=== PATIENT | male | born 1985 | race Asian ===

== ENCOUNTER 2025-04-24 14:48 | Emergency (ER) | payer OTHER, BC, SELFPAY ==
--- NOTE | ~2025-04-24 | XR_ITS ---
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 TECHNIQUE: AP view(s) of the abdomen. FINDINGS: The bowel gas pattern is normal. There is no evidence for obstruction. Radiopaque foreign body in the mid abdomen, likely in the distal stomach. No free intraperitoneal air is identified on this supine radiograph. The visualized soft tissue shadows are unremarkable. No gross bony abnormalities are seen. Visualized portions of lung bases are clear. IMPRESSION: Radiopaque foreign body in the mid abdomen, likely in the distal stomach. Reviewed, dictated and finalized at location A.
--- NOTE | 2025-04-24 15:00 | ED.GENADULT ---
HPI - General Adult General Chief complaint: Skin/Abscess/Foreign Body Stated complaint: SWALLOWED FB Time Seen by Provider: 04/24/25 15:00 Source: patient, RN notes reviewed and old records reviewed Mode of arrival: ambulatory Limitations: no limitations History of Present Illness HPI narrative: 39-year-old male presents to the [facility] with concerns of either swallowing or inhaling a screwdriver from a dental tool. Patient reports that they were unscrewing his dental implants when the screwdriver fell off and not sure if he swallowed it or if he inhaled it. Was sent from the dental office to the urgent care. Patient in no respiratory distress, no trouble breathing, oxygen is normal Patient denies any pain currently Onset (ago): minute(s) (30 prior to arrival) Related Data Home Medications ?Medication ?Instructions ?Recorded ?Confirmed ?Last Taken ?Type No Home Medications 04/24/25 04/24/25 Unknown History Allergies Allergy/AdvReac Type Severity Reaction Status Date / Time No Known Allergies Allergy Verified 04/24/25 18:10 Review of Systems Review of Systems: All systems reviewed & are unremarkable except as noted in HPI and below Constitutional: Constitutional: Reports no additional constitutional complaints ENT: Reports system reviewed and no additional complaints, except as documented Cardiovascular: Cardiovascular: Reports no additional cardiovascular complaints, Denies chest pain and Denies dyspnea Respiratory: Respiratory: Reports no additional respiratory complaints, Denies chest congestion, Denies cough and Denies dyspnea Gastrointestinal: Gastrointestinal: Reports as per HPI Musculoskeletal: Musculoskeletal: Reports no additional musculoskeletal complaints Integumentary/Breasts: Skin/Breast: Reports system reviewed and no additional complaints, except as docu PMFSH Past Medical History Medical History Spasm of muscle of lower back BMI 29.0-29.9,adult Social History Social History Smoking status: Never smoker Alcohol intake: current Comments At the time of my signature, I reviewed and agree with the nursing past medical, surgical, social, and family history. There is no relevant family history pertinent to the patient complaint. Exam Const: General: cooperative, healthy appearing, comfortable, no acute distress, well developed, alert and well nourished Nutritional Appearance: well nourished Orientation/consciousness: patient oriented x3 Limitations: no limitations HENMT: Head: normal to inspection Ears: hearing grossly normal bilaterally Mouth: Yes Normal oral and palatal mucosa present, Yes lip normal, Yes tongue normal and Yes moist mucous membranes Eyes: General: appearance normal, both eyes and all related structures Alignment and Position: alignment normal Neck: Neck: normal visual inspection, full ROM, no lymphadenopathy and no meningeal signs Chest: Chest palpation & inspection: normal inspection of the chest Resp: Effort & Inspection: normal respiratory effort and able to speak in complete sentences Cardio: Rate: regular rate GI: GI Palp: No abdominal tenderness Skin: General skin exam: normal color and no rashes or lesions noted Neuro: General: patient oriented x3, gait normal, moves all extremities and no meningeal signs Cognition (Neuro): normal cognition Speech: normal speech Gait exam (Neuro): Normal gait present Extrem: General: normal to inspection, full ROM, capillary refill normal and normal gait Psych: Appearance: grossly normal and well kempt Mental Status: mental status grossly normal Speech and movement: Normal speech and movement present and Clear speech present Affect: normal affect Attitude: cooperative Course Course Emergency Course: [address] Rangel 1530 call to [employer]- left message. 1535 Dr Benitez discussed x-ray, radiopaque foreign body in mid abdomen likely distal stomach. Recommended transfer to the ER, if still in stomach will do an upper endoscopy and retrieve foreign body, if in small intestine will not be able to retrieve. Level of Care: Express Care Visit Vital Signs Vital signs: Vital Signs Temperature 98 F 04/24/25 15:03 Pulse Rate 83 04/24/25 15:03 Respiratory Rate 16 04/24/25 15:03 Blood Pressure 130/87 04/24/25 15:03 Pulse Oximetry 100 04/24/25 15:03 Temperature 98 F 04/24/25 15:03 Pulse Rate 83 04/24/25 15:03 Respiratory Rate 16 04/24/25 15:03 Blood Pressure 130/87 04/24/25 15:03 Pulse Oximetry 100 04/24/25 15:03 Reviewed Transfer Transfered to: [place] Transportation: Other (POV) Transfer rationale: Patient with foreign body, screwdriver from a dental instrument in the stomach Accepting physician: Spoke with Dr Jim David Medical Decision Making MDM Narrative Medical decision making narrative: Patient sitting comfortably in exam room. Nontoxic, vitals stable. Patient in no acute distress Patient presents after swallowing a part of a dental screwdriver approximately 30 minutes prior to arrival in the [facility]. After discussing with Dr. Newman as well as Dr. Benitez. GI provider would like him sent to the ER for repeat KUB and is still in stomach will do endoscopy to retrieve objects, if it is in the intestine he will be unable to retrieve it and will follow him for it to pass. Discussed this with patient who was in agreement. Will go to [place] ER Transfer instructions reviewed with patient to go directly to the ER. Stressed the importance of not eating or drinking anything until cleared by ER provider/GI provider All questions have been answered, and the patient deny any further questions Some parts of this dictation were generated by voice recognition software and may contain typographical and/or grammatical inaccuracies. Differential Diagnosis Differential Diagnosis: Foreign body lung, foreign body stomach, foreign body intestines, Medical Records Medical records reviewed: Yes I reviewed the external patient's medical records. Vital Signs Vital Signs: Vital Signs Temperature 98 F 04/24/25 15:03 Pulse Rate 83 04/24/25 15:03 Respiratory Rate 16 04/24/25 15:03 Blood Pressure 130/87 04/24/25 15:03 Pulse Oximetry 100 04/24/25 15:03 Temperature 98 F 04/24/25 15:03 Pulse Rate 83 04/24/25 15:03 Respiratory Rate 16 04/24/25 15:03 Blood Pressure 130/87 04/24/25 15:03 Pulse Oximetry 100 04/24/25 15:03 Reviewed Lab Data Lab results reviewed: Yes I reviewed the patient's lab results. 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 TECHNIQUE: AP view(s) of the abdomen. FINDINGS: The bowel gas pattern is normal. There is no evidence for obstruction. Radiopaque foreign body in the mid abdomen, likely in the distal stomach. No free intraperitoneal air is identified on this supine radiograph. The visualized soft tissue shadows are unremarkable. No gross bony abnormalities are seen. Visualized portions of lung bases are clear. IMPRESSION: Radiopaque foreign body in the mid abdomen, likely in the distal stomach. Critical Care Time Critical Care Time Critical Care Time: No Discharge Plan Discharge Clinical Impression: FB mouth/esophag/stomach Qualifiers: Encounter type: initial encounter Qualified Code(s): T18.0XXA - Foreign body in mouth, initial encounter Patient Disposition: Acute Care Hospital Condition: Stable Patient Language: French Prescriptions: No Action No Home Medications Follow-up/Referrals: Lukasz Chacon MD [Primary Care Provider, [facility]]
[2025-04-24 15:03] VITALS: BP 130/87; PULSE 83; RESP 16; TEMP 36.6; O2SAT 100
--- NOTE | 2025-04-24 15:37 | PC.NURSE ---
1535- PROFESSOR OF BIOLOGICAL SCIENCES talking to ALEJANDRO Delgado.
== END 2025-04-24 15:48 | disposition short-term general hospital (02) ==
PROVIDERS: Emergency Provider Nurse Practitioner; PCP Family Medicine
DX: T18.198A Other foreign object in esophagus causing other injury, initial encounter (principal); T18.2XXA Foreign body in stomach, initial encounter; W44.8XXA Other foreign body entering into or through a natural orifice, initial encounter
CPT/HCPCS: 74018; 99213; G0463; J3010

== ENCOUNTER 2025-04-24 16:00 | Day surgery (SDC) | payer BC, SELFPAY ==
[2025-04-24] VITALS (9 sets, daily range): BP systolic 130–163; BP diastolic 70–105; PULSE 75–99; RESP 16–18; TEMP 36.6–36.7; O2SAT 96–100
--- NOTE | ~2025-04-24 | XR_ITS ---
EXAMINATION: XR abdomen/kub 1V DATE: 04/24/2025 16:22 INDICATION: Swallowed screwdriver during dental procedure TECHNIQUE: A supine view of the abdomen on 2 radiographs was obtained. COMPARISON: 04/24/2025 FINDINGS: Moderate amount of stool and air in nondilated large bowel. Small amount of air in nondilated small bowel. There is a 7 mm calcification in the left hemipelvis. Prior surgical change projects over the right lower abdomen. Partial lumbarization of the S1 segment. There is a 2.5 cm metallic foreign body projecting over the right transverse process of L1. IMPRESSION: 1. There is a 2.5 cm metallic foreign body projecting over the right transverse process of L1. 2. Nonobstructive bowel gas pattern. Reviewed, dictated and finalized at location A.
[2025-04-24 17:27] LABS: Hematocrit 45.9 % (42.0-52.0); Hemoglobin 15.7 g/dL (14.0-18.0); Immature Granulocyte Percent A 0.2 % (0-0.5); Lymphocytes Absolute Auto 2.19 K/mm3 (0.9-3.2); Mean Corpuscular HGB Conc 34.2 g/dl (32-36); Mean Corpuscular Hemoglobin 29.1 pg (26-34); Mean Corpuscular Volume 85.2 fl (80-100); Nucleated Red Blood Cells Absolute Auto 0.000 K/mm3 (0.0-0.012); Nucleated Red Blood Cells Perc 0.0 % (0.0-0.2); Platelet Count Result 297 k/mm3 (150-375); Red Blood Count 5.39 M/mm3 (4.6-6.20); White Blood Count 5.7 K/mm3 (4.5-10.0)
--- NOTE | 2025-04-24 17:29 | ED_ITS ---
HPI - Recheck/Abnormal Lab/Rx General Chief Complaint: Recheck/Abnormal Lab/Rx <Rosa Newell PA-C - Last Filed: 04/24/25 19:11> Stated Complaint: FB GI <Rosa Newell PA-C - Last Filed: 04/24/25 19:11> Time Seen by Provider: 04/24/25 16:28 <Rosa Newell PA-C - Last Filed: 04/24/25 19:11> Source: patient <Rosa Newell PA-C - Last Filed: 04/24/25 19:11> Mode of arrival: ambulatory <MARYAM Garcia Last Filed: 04/24/25 19:11> Limitations: no limitations <Rosa Newell PA-C - Last Filed: 04/24/25 19:11> History of Present Illness HPI narrative: This is a 39-year-old male that presents to the emergency department for a foreign body in stomach. He was having a dental procedure done and they dropped a small screwdriver down his throat. Was seen at urgent care, sent to the ER for further evaluation. <Rosa Newell PA-C - Last Filed: 04/24/25 19:11> Related Data Home Medications: Home Medications ?Medication ?Instructions ?Recorded ?Confirmed ?Last Taken ?Type No Home Medications 04/24/25 04/24/25 U nknown History <Rosa Newell PA-C - Last Filed: 04/24/25 19:11> Allergies/Adverse Reactions: Allergies Allergy/AdvReac Type Severity Reaction Status Date / Time No Known Allergies Allergy Verified 04/24/25 18:10 <MARYAM Garcia Last Filed: 04/24/25 19:11> Review of Systems 2 Review of Systems: All systems reviewed & are unremarkable except as noted in HPI and below <Rosa Newell PA-C - Last Filed: 04/24/25 19:11> PMFSH Past Medical History Medical History: Medical History Spasm of muscle of lower back BMI 29.0-29.9,adult <Rosa Newell PA-C - Last Filed: 04/24/25 19:11> Social History Social History: Social History Smoking status: Never smoker Alcohol intake: current <Rosa Newell PA-C - Last Filed: 04/24/25 19:11> Exam 2 Narrative: GENERAL: Well-appearing, well-nourished, and in no acute distress. HEAD: Normocephalic, atraumatic. EYES: EOMI. ENT: Nares clear, no rhinorrhea or epistaxis. Mucous membranes moist. Oropharynx without tonsillar hypertrophy exudate or other lesions. CHEST: No respiratory distress. HEART: Regular rate EXTREMITIES: Normal range of motion. No edema. SKIN: Warm, dry, no rash. NEURO: No focal deficits. Alert and oriented x3. PSYCH: Normal mood and affect <Rosa Newell PA-C - Last Filed: 04/24/25 19:11> Course DECISION SCIENCE ANALYST/PA Physician Supervision This visit was performed by both a physician and an APC; I performed all aspects of the medical decision making component of this evaluation as documented. <Renea Fernandez MD - Last Filed: 04/24/25 19:18> Consultations Consultation #1: Spoke with Dr. Delgado. Patient will be taken to the GI lab for further management <Rosa Newell PA-C - Last Filed: 04/24/25 19:11> Date: 04/24/25 <Rosa Newell PA-C - Last Filed: 04/24/25 19:11> Vital Signs Vital signs: Vital Signs Temperature 97.9 F 04/24/25 16:03 Pulse Rate 84 04/24/25 16:03 Respiratory Rate 16 04/24/25 16:03 Blood Pressure 148/105 H 04/24/25 16:03 Pulse Oximetry 100 04/24/25 16:03 Oxygen Delivery Room Air 04/24/25 16:03 Temperature 98.1 F 04/24/25 18:48 Pulse Rate 90 04/24/25 18:58 Respiratory Rate 18 04/24/25 18:58 Blood Pressure 152/94 H 04/24/25 18:58 Pulse Oximetry 96 04/24/25 18:58 Oxygen Delivery Room Air 04/24/25 18:58 <Rosa Newell PA-C - Last Filed: 04/24/25 19:11> Vital Signs Temperature 97.9 F 04/24/25 16:03 Pulse Rate 84 04/24/25 16:03 Respiratory Rate 16 04/24/25 16:03 Blood Pressure 148/105 H 04/24/25 16:03 Pulse Oximetry 100 04/24/25 16:03 Oxygen Delivery Room Air 04/24/25 16:03 Temperature 98.1 F 04/24/25 18:48 Pulse Rate 90 04/24/25 18:58 Respiratory Rate 18 04/24/25 18:58 Blood Pressure 152/94 H 04/24/25 18:58 Pulse Oximetry 96 04/24/25 18:58 Oxygen Delivery Room Air 04/24/25 18:58 <Renea Fernandez MD - Last Filed: 04/24/25 19:18> MDM - Recheck/Abnormal Lab/Rx Lab Data Result diagrams: 04/24/25 17:15 04/24/25 17:15 <Rosa Newell PA-C - Last Filed: 04/24/25 19:11> Labs: Lab Results 04/24/25 Range/Units 17:15 WBC 5.7 (4.5-10.0) K/mm3 RBC 5.39 (4.6-6.20) M/mm3 Hgb 15.7 (14.0-18.0) g/dL Hct 45.9 (42.0-52.0) % MCV 85.2 (80-100) fl MCH 29.1 (26-34) pg MCHC 34.2 (32-36) g/dl RDW 12.8 (11.5-14.5) % Plt Count 297 (150-375) k/mm3 MPV 7.9 (7.4-10.4) fl Immature Gran % (Auto) 0.2 (0-0.5) % Neut % (Auto) 55.5 (45.5-73.1) % Lymph % (Auto) 38.3 (18.3-44.2) % Jay % (Auto) 4.4 (2.6-8.5) % Eos % (Auto) 0.9 (0-4.4) % Baso % (Auto) 0.7 (0.2-1.2) % Lymph # (Auto) 2.19 (0.9-3.2) K/mm3 Jay # (Auto) 0.3 (0.1-0.6) K/mm3 Eos # (Auto) 0.1 (0-0.3) K/mm3 Baso # (Auto) 0.0 (0.0-0.1) K/mm3 Abs Immat Gran (auto) 0.01 (0.00-0.031) K/mm3 Absolute Neuts (auto) 3.2 (1.3-6.7) K/mm3 Absolute Nucleated RBC 0.000 (0.0-0.012) K/mm3 Nucleated RBC % 0.0 (0.0-0.2) % Sodium 138 (137-145) mmol/L Potassium 4.1 (3.4-5.0) mmol/L Chloride 102 (98-107) mmol/L Carbon Dioxide 24 (22-30) mmol/L Anion Gap 12 (4-12) mmol/L BUN 21 H (9-20) mg/dL Creatinine 0.99 (0.7-1.3) mg/dL Estim Creat Clear Calc 81 ml/min Estimated GFR > 60 (59 - ) Glucose 107 (65-110) mg/dL Calcium 9.5 (8.4-10.2) mg/dL Total Bilirubin 0.4 (0.2-1.3) mg/dL AST 41 (17-59) U/L ALT 42 (6-50) U/L Alkaline Phosphatase 55 (38-126) U/L Total Protein 9.3 H (6.3-8.2) g/dL Albumin 4.9 (3.5-5.1) g/dL <Rosa Newell PA-C - Last Filed: 04/24/25 19:11> Lab Results 04/24/25 Range/Units 17:15 WBC 5.7 (4.5-10.0) K/mm3 RBC 5.39 (4.6-6.20) M/mm3 Hgb 15.7 (14.0-18.0) g/dL Hct 45.9 (42.0-52.0) % MCV 85.2 (80-100) fl MCH 29.1 (26-34) pg MCHC 34.2 (32-36) g/dl RDW 12.8 (11.5-14.5) % Plt Count 297 (150-375) k/mm3 MPV 7.9 (7.4-10.4) fl Immature Gran % (Auto) 0.2 (0-0.5) % Neut % (Auto) 55.5 (45.5-73.1) % Lymph % (Auto) 38.3 (18.3-44.2) % Jay % (Auto) 4.4 (2.6-8.5) % Eos % (Auto) 0.9 (0-4.4) % Baso % (Auto) 0.7 (0.2-1.2) % Lymph # (Auto) 2.19 (0.9-3.2) K/mm3 Jay # (Auto) 0.3 (0.1-0.6) K/mm3 Eos # (Auto) 0.1 (0-0.3) K/mm3 Baso # (Auto) 0.0 (0.0-0.1) K/mm3 Abs Immat Gran (auto) 0.01 (0.00-0.031) K/mm3 Absolute Neuts (auto) 3.2 (1.3-6.7) K/mm3 Absolute Nucleated RBC 0.000 (0.0-0.012) K/mm3 Nucleated RBC % 0.0 (0.0-0.2) % Sodium 138 (137-145) mmol/L Potassium 4.1 (3.4-5.0) mmol/L Chloride 102 (98-107) mmol/L Carbon Dioxide 24 (22-30) mmol/L Anion Gap 12 (4-12) mmol/L BUN 21 H (9-20) mg/dL Creatinine 0.99 (0.7-1.3) mg/dL Estim Creat Clear Calc 81 ml/min Estimated GFR > 60 (59 - ) Glucose 107 (65-110) mg/dL Calcium 9.5 (8.4-10.2) mg/dL Total Bilirubin 0.4 (0.2-1.3) mg/dL AST 41 (17-59) U/L ALT 42 (6-50) U/L Alkaline Phosphatase 55 (38-126) U/L Total Protein 9.3 H (6.3-8.2) g/dL Albumin 4.9 (3.5-5.1) g/dL <Renea Fernandez MD - Last Filed: 04/24/25 19:18> Critical Care Time Critical Care Time Critical Care Time: No <Rosa Newell PA-C - Last Filed: 04/24/25 19:11> Discharge Plan Discharge Clinical Impression: Foreign body in stomach Qualifiers: Encounter type: initial encounter Qualified Code(s): T18.2XXA - Foreign body in stomach, initial encounter <Rosa Newell PA-C - Last Filed: 04/24/25 19:11> Patient Disposition: Still a Patient <Rosa Newell PA-C - Last Filed: 04/24/25 19:11> Condition: Stable <Rosa Newell PA-C - Last Filed: 04/24/25 19:11>
[2025-04-24 18:01] LABS: Alanine Aminotransferase 42 U/L (6-50); Albumin Level 4.9 g/dL (3.5-5.1); Alkaline Phosphatase 55 U/L (38-126); Anion Gap 12 mmol/L (4-12); Aspartate Amino Transferase 41 U/L (17-59); Bilirubin,Total 0.4 mg/dL (0.2-1.3); Blood Urea Nitrogen 21 mg/dL (9-20); Calcium 9.5 mg/dL (8.4-10.2); Carbon Dioxide 24 mmol/L (22-30); Chloride 102 mmol/L (98-107); Estimated CRCL calculation 81 ml/min; Estimated Glomerular Filt Rate > 60; Glucose 107 mg/dL (65-110); Potassium 4.1 mmol/L (3.4-5.0); Sodium 138 mmol/L (137-145); Total Protein 9.3 g/dL (6.3-8.2)
--- NOTE | 2025-04-24 18:04 | WPDANESEPPF ---
Anes - Initial Pre Proc Eval Procedure: Operation Date: 04/24/25 18:00 Proposed Procedures p Esophagogastroduodenoscopy - Robert Benitez MD Date/Time: 04/24/25 18:04 Pre Op Diagnosis: FB GI Patient Data Age: 39 Gender: M Height: 1.7 m Weight: 84.1 kg Last Vital Signs Temp 97.9 F 04/24/25 16:03 Pulse 84 04/24/25 16:03 Resp 16 04/24/25 16:03 BP 148/105 H 04/24/25 16:03 Pulse Ox 100 04/24/25 16:03 O2 Del Method Room Air 04/24/25 16:03 Allergies Allergy/AdvReac Type Severity Reaction Status Date / Time No Known Allergies Allergy Verified 04/24/25 16:05 Home Medications ?Medication ?Instructions ?Recorded ?Confirmed ?Type No Home Medications 04/24/25 04/24/25 History Laboratory Tests 04/24/25 17:15 WBC 5.7 K/mm3 (4.5-10.0) RBC 5.39 M/mm3 (4.6-6.20) Hgb 15.7 g/dL (14.0-18.0) Hct 45.9 % (42.0-52.0) MCV 85.2 fl (80-100) MCH 29.1 pg (26-34) MCHC 34.2 g/dl (32-36) RDW 12.8 % (11.5-14.5) Plt Count 297 k/mm3 (150-375) MPV 7.9 fl (7.4-10.4) Immature Gran % (Auto) 0.2 % (0-0.5) Neut % (Auto) 55.5 % (45.5-73.1) Lymph % (Auto) 38.3 % (18.3-44.2) [place] % (Auto) 4.4 % (2.6-8.5) Eos % (Auto) 0.9 % (0-4.4) Baso % (Auto) 0.7 % (0.2-1.2) Lymph # (Auto) 2.19 K/mm3 (0.9-3.2) [place] # (Auto) 0.3 K/mm3 (0.1-0.6) Eos # (Auto) 0.1 K/mm3 (0-0.3) Baso # (Auto) 0.0 K/mm3 (0.0-0.1) Abs Immat Gran (auto) 0.01 K/mm3 (0.00-0.031) Absolute Neuts (auto) 3.2 K/mm3 (1.3-6.7) Absolute Nucleated RBC 0.000 K/mm3 (0.0-0.012) Nucleated RBC % 0.0 % (0.0-0.2) Sodium 138 mmol/L (137-145) Potassium 4.1 mmol/L (3.4-5.0) Chloride 102 mmol/L (98-107) Carbon Dioxide 24 mmol/L (22-30) Anion Gap 12 mmol/L (4-12) BUN 21 H mg/dL (9-20) Creatinine 0.99 mg/dL (0.7-1.3) Estim Creat Clear Calc 81 ml/min Estimated GFR > 60 (59 - ) Glucose 107 mg/dL (65-110) Calcium 9.5 mg/dL (8.4-10.2) Total Bilirubin 0.4 mg/dL (0.2-1.3) AST 41 U/L (17-59) ALT 42 U/L (6-50) Alkaline Phosphatase 55 U/L (38-126) Total Protein 9.3 H g/dL (6.3-8.2) Albumin 4.9 g/dL (3.5-5.1) Patient hx anesthesia problems: none Family hx anesthesia problems: none Results Review: All pre-operative results and documents have been reviewed as part of the pre-operative evaluation. [facility] Past Medical History Medical History Spasm of muscle of lower back BMI 29.0-29.9,adult Social History Social History Smoking status: Never smoker Alcohol intake: current Anes - Eval Final PreProcedure Day of Procedure 04/24/25 18:04 Patient weight: overweight Lungs: normal air movement Airway: Mallampati scale class II Neurological: alert and oriented Last oral intake: >/= 8 hours ASA classification: I Emergent: yes Anesthetic plan: proceed Anesthesia type and monitoring: general ETT and standard monitoring Results Review: All pre-operative results and documents have been reviewed as part of the pre-operative evaluation. Pt w foreign body in the Esophagus after procedure today at dentist (hardware/screw). Now for emergent EGD for foreign body retrival. Informed Consent: The patient's anesthetic plan and its attendant risks and benefits were discussed with the patient/family/POA. Questions were solicited and answers provided to the satisfaction of the patient/family/POA.
[2025-04-24] MEDS: LACTATED RINGERS 1,000 ML 30 ML IV CONT (18:18)
--- NOTE | 2025-04-24 18:34 | WPDGICN ---
Assessment and Plan Assessment and plan (1) FB mouth/esophag/stomach: Qualifiers: Encounter type: initial encounter Qualified Code(s): T18.0XXA - Foreign body in mouth, initial encounter; T18.108A - Unspecified foreign body in esophagus causing other injury, initial encounter; T18.2XXA - Foreign body in stomach, initial encounter Code(s): T18.0XXA - Foreign body in mouth, initial encounter; T18.108A - Unspecified foreign body in esophagus causing other injury, initial encounter; T18.2XXA - Foreign body in stomach, initial encounter Status: Acute Assessment and Plan: we are going to proceed with urgent EGD to remove foreign body he will receive general anesthesia and will be intubated, he does not have a ride home. This was discussed with housekeeping worker and anesthesia team, he will have to stay overnight since won't be safe for him to go home without a ride. Hospitalist will admit patient as observation and he will go home tomorrow GI Consult Note Consult date/time: 04/24/25 18:34 Reason for consult: foreign body in stomach HPI: Ethan Lewis is a 39 year old male healthy patient who had dental work today and by accident swallowed screw, he went to urgent care, XR showed object in stomach then instructed to come to ER. He is doing ok otherwise. Review of Systems Constitutional: Constitutional: Denies headache(s) and Denies weakness Eyes: Eyes: Denies blurry vision ENT: Reports Normal hearing present, Denies headache(s) and Denies neck pain Cardiovascular: Cardiovascular: Denies chest pain and Denies dyspnea Respiratory: Respiratory: Denies dyspnea Gastrointestinal: Gastrointestinal: Reports no additional gastrointestinal complaints Genitourinary: Genitourinary: Denies dysuria Musculoskeletal: Musculoskeletal: Denies neck pain Integumentary/Breasts: Skin/Breast: Denies dry skin Neurologic: Reports Normal hearing present, Denies headache(s) and Denies weakness Psychiatric: Psychiatric: Denies anxiety Endocrine: Endocrine: Denies change in body appearance Hematologic/Lymphatic: Hematologic/Lymphatic: Denies easy bleeding Allergic/Immunologic: Allergic/Immunologic: Denies urticaria PMFSH Past Medical History Medical History Spasm of muscle of lower back BMI 29.0-29.9,adult Social History Social History Smoking status: Never smoker Alcohol intake: current Meds Home Medications and Allergies Home Medications ?Medication ?Instructions ?Recorded ?Confirmed ?Type No Home Medications 04/24/25 04/24/25 History Allergies Allergy/AdvReac Type Severity Reaction Status Date / Time No Known Allergies Allergy Verified 04/24/25 18:10 Vital Signs Vital Signs - 24 hr 04/24/25 16:03 04/24/25 18:11 Temperature 97.9 F 97.9 F Pulse Rate 84 80 Respiratory Rate 16 18 Blood Pressure 148/105 H 142/91 H Pulse Oximetry 100 96 Oxygen Delivery Room Air Room Air Exam Const: General: comfortable and no acute distress HENMT: Face/Nose/Sinus: Normal nares present Eyes: General: appearance normal, both eyes and all related structures Neck: Neck: no JVD Resp: Auscultation: clear to auscultation bilaterally Cardio: Rate: regular rate Rhythm: regular rhythm GI: Inspection: non-distended GI Palp: Yes Soft to palpation Skin: General skin exam: normal color Neuro: General: gait normal Speech: normal speech Extrem: General: normal to inspection Psych: Mental Status: mental status grossly normal Results Labs 04/24/25 17:15 04/24/25 17:15 Labs: Short CBC 04/24/25 Range/Units 17:15 WBC 5.7 (4.5-10.0) K/mm3 Hgb 15.7 (14.0-18.0) g/dL Hct 45.9 (42.0-52.0) % Plt Count 297 (150-375) k/mm3 [facility] 04/24/25 17:15 Sodium 138 Potassium 4.1 Chloride 102 Carbon Dioxide 24 BUN 21 H Creatinine 0.99 Glucose 107 Calcium 9.5 Liver Function 04/24/25 Range/Units 17:15 Total Bilirubin 0.4 (0.2-1.3) mg/dL AST 41 (17-59) U/L ALT 42 (6-50) U/L Alkaline Phosphatase 55 (38-126) U/L Albumin 4.9 (3.5-5.1) g/dL
--- NOTE | 2025-04-24 19:35 | SUR.PHASEII ---
Patient pre oped and recovered in procedure room 3.
--- NOTE | 2025-04-24 19:39 | SUR.PHASEII ---
Before starting EGD procedure, patient stated he did not have a ride home. Care coordination had been called to see if they could assist in getting a ride home for him and they were unable to find anything. Dr. Delgado called the admitting hospitalist, Dr. Sanon who said he could take him overnight for observation. After procedure was done and patient had been recovering for about 20 to 30 min he had been able to contact someone who could take him home. At the point I called the smokehouse worker to make them aware of the situation and to ask if patient could still be discharged from GI if I got the discharge orders from Dr. Delgado. cytotechnologist/cytology supervisor called Dr. Sanon who stated he did not need to see the patient. I stopped the transfer order per Dr. Delgado and put in the discharge so the patient could be discharged from the GI lab.
== END 2025-04-24 19:57 | disposition home or self-care (01) ==
LOC: ANHED 18:39 → ANHENDO 18:40
PROVIDERS: Emergency Provider Physician Assistant; PCP Family Medicine; Visit Provider Internal Medicine Gastroenterology
PROC: 0DJ08ZZ Inspection of Upper Intestinal Tract, Via Natural or Artificial Opening Endoscopic (ICD-10-PCS; CPT 43247; principal; 2025-04-24 18:00)
DX: T18.2XXA Foreign body in stomach, initial encounter (principal); W44.8XXA Other foreign body entering into or through a natural orifice, initial encounter; R25.2 Cramp and spasm
CPT/HCPCS: 43247; 36415; 74018; 80053; 85025; 96361; 96374; 96375; 99285; J0330; J2003; J2704; J7120